=== PATIENT | female | born 1955 | race Caucasian/White ===

== ENCOUNTER → 2019-01-09 | Outpatient (CLI) | payer MEDICARE, OTHER ==
[~2019-01-09] MED LIST: ATOR20; LEVSOD125 PO; METO25ER; NAPR500ERA; PROG100; VICODIN; [UNRECOGNIZED DRUG - CODE]; [UNRECOGNIZED DRUG - OTHER]
[2019-01-09 13:00] LABS: Bilirubin, Urine Neg (Neg); Blood, Urine 3+ (Neg); Glucose Qualitative, Urine Neg (Neg); Ketones, Urine Neg (Neg); Leukocyte Esterase, Urine 1+ (Neg); Nitrite, Urine Neg (Neg); Protein, Urine Neg (Neg); Urobilinogen, Urine NORM (Normal)
[2019-01-09 13:12] LABS: Appearance, Urine Clear (Clear); Color, Urine Yellow (P-Yellow)
[2019-01-09 13:14] LABS: Bacteria Few /hpf; Red Blood Cells, Urine 25-50 /hpf (0-2); Squamous Epithelial Cells Mod /hpf (Few)
== END | disposition home or self-care (01) ==
LOC: LAB SHORT 09:39 → LAB 09:39
PROVIDERS: Nurse Practitioner Family
DX: N39.0 Urinary tract infection, site not specified (principal)
CPT/HCPCS: 81001; 87077; 87086; 87186

== ENCOUNTER → 2019-02-04 | Outpatient (CLI) | payer MEDICARE, OTHER | END | disposition home or self-care (01) | LOC: LAB SHORT 19:07 → LAB EV 19:07 | DX: N39.0 Urinary tract infection, site not specified (principal) | CPT/HCPCS: 87086 ==

== ENCOUNTER 2019-03-18 09:05 | Day surgery (SDC) | payer MEDICARE, OTHER ==
[~2019-03-18] VITALS: Ht 160 cm; Wt 92.3 kg
== END 2019-03-18 11:00 | disposition home or self-care (01) ==
LOC: ORSCSDS 09:05
PROVIDERS: Internal Medicine Gastroenterology
PROC: 0DBH8ZX Excision of Cecum, Via Natural or Artificial Opening Endoscopic, Diagnostic (ICD-10-PCS; principal; 2019-03-18 10:15)
PROC: 0DBM8ZX Excision of Descending Colon, Via Natural or Artificial Opening Endoscopic, Diagnostic (ICD-10-PCS; principal; 2019-03-18 10:15)
DX: Z12.11 Encounter for screening for malignant neoplasm of colon (principal); D12.0 Benign neoplasm of cecum; D12.4 Benign neoplasm of descending colon; K57.30 Diverticulosis of large intestine without perforation or abscess without bleeding; K64.8 Other hemorrhoids; I10 Essential (primary) hypertension; E03.9 Hypothyroidism, unspecified; Z79.899 Other long term (current) drug therapy
CPT/HCPCS: 88305; J2704; J7120

== ENCOUNTER → 2019-03-25 | Outpatient (CLI) | payer MEDICARE, OTHER ==
[2019-03-25 07:44] LABS: Source, Urine Clean Catch
[2019-03-25 12:56] LABS: Bilirubin, Urine Neg (Neg); Blood, Urine Neg (Neg); Glucose Qualitative, Urine Neg (Neg); Ketones, Urine Neg (Neg); Leukocyte Esterase, Urine Neg (Neg); Nitrite, Urine Neg (Neg); Protein, Urine Neg (Neg); Specific Gravity, Urine 1.005 (1.003-1.022); Urobilinogen, Urine NORM (Normal)
[2019-03-25 13:11] LABS: Appearance, Urine Clear (Clear); Color, Urine Yellow (P-Yellow)
== END | disposition home or self-care (01) ==
LOC: LAB 07:42 → LAB SHORT 07:42
PROVIDERS: Registered Nurse
DX: N39.0 Urinary tract infection, site not specified (principal)
CPT/HCPCS: 81003; 87086

== ENCOUNTER → 2019-04-18 | Outpatient (CLI) | payer MEDICARE, OTHER | END | disposition home or self-care (01) | LOC: LAB SHORT 14:00 → LAB 14:00 | DX: R30.0 Dysuria (principal) | CPT/HCPCS: 87086 ==

== ENCOUNTER → 2019-05-22 | Outpatient (CLI) | payer MEDICARE, OTHER ==
[2019-05-22 13:28] LABS: Bilirubin, Urine Neg (Neg); Blood, Urine Neg (Neg); Glucose Qualitative, Urine Neg (Neg); Ketones, Urine Neg (Neg); Leukocyte Esterase, Urine Neg (Neg); Nitrite, Urine Neg (Neg); Protein, Urine Neg (Neg); Urobilinogen, Urine NORM (Normal)
[2019-05-22 14:10] LABS: Appearance, Urine Clear (Clear); Color, Urine Pale Yellow (P-Yellow)
== END | disposition home or self-care (01) ==
LOC: LAB 13:19 → LAB SHORT 13:19
PROVIDERS: Nurse Practitioner Obstetrics & Gynecology
DX: R82.998 Other abnormal findings in urine (principal)
CPT/HCPCS: 81003

== ENCOUNTER → 2019-07-07 | Outpatient (CLI) | payer MEDICARE, OTHER | END | disposition home or self-care (01) | LOC: LAB 09:49 → LAB SHORT 09:49 | DX: N76.0 Acute vaginitis (principal) | CPT/HCPCS: 87070; 87077; 87186; 87205 ==

== ENCOUNTER → 2020-02-02 | Outpatient (CLI) | payer MEDICARE, OTHER ==
[2020-02-02 14:11] LABS: Bilirubin, Urine Neg (Neg); Blood, Urine Neg (Neg); Glucose Qualitative, Urine Neg (Neg); Ketones, Urine 1+ (Neg); Leukocyte Esterase, Urine Neg (Neg); Nitrite, Urine Neg (Neg); Protein, Urine Neg (Neg); Specific Gravity, Urine 1.025 (1.003-1.022); Urobilinogen, Urine NORM (Normal)
[2020-02-02 14:28] LABS: Appearance, Urine Clear (Clear); Color, Urine Yellow (P-Yellow)
== END | disposition home or self-care (01) ==
LOC: LAB 09:00 → LAB SHORT 09:00 → LAB FUT 01-31 15:15
PROVIDERS: Nurse Practitioner Family
DX: R30.9 Painful micturition, unspecified (principal)
CPT/HCPCS: 81003

== ENCOUNTER → 2022-01-04 | Outpatient (CLI) | payer MEDICARE, OTHER | END | disposition home or self-care (01) | LOC: LAB SHORT 13:30 | DX: R30.9 Painful micturition, unspecified (principal) | CPT/HCPCS: 87086 ==

== ENCOUNTER → 2022-01-31 | Outpatient (CLI) | payer MEDICARE, OTHER | END | disposition home or self-care (01) | LOC: LAB SHORT 18:01 | DX: R30.9 Painful micturition, unspecified (principal) | CPT/HCPCS: 87086 ==

== ENCOUNTER 2022-05-07 09:12 | Day surgery (SDC) | payer MEDICARE, OTHER ==
[~2022-05-07] VITALS: Ht 154.9 cm; Wt 85.5 kg
== END 2022-05-07 11:38 | disposition home or self-care (01) ==
LOC: ORSCSDS 09:12
PROVIDERS: Internal Medicine Gastroenterology
PROC: 0DJD8ZZ Inspection of Lower Intestinal Tract, Via Natural or Artificial Opening Endoscopic (ICD-10-PCS; principal; 2022-05-07 10:30)
DX: Z12.11 Encounter for screening for malignant neoplasm of colon (principal); Z86.010 Personal history of colon polyps; K57.30 Diverticulosis of large intestine without perforation or abscess without bleeding; E66.9 Obesity, unspecified; Z68.33 Body mass index [BMI] 33.0-33.9, adult; Z79.899 Other long term (current) drug therapy
CPT/HCPCS: J2704; J7120

== ENCOUNTER 2022-08-21 11:04 | Inpatient (IN) | payer MEDICARE, OTHER ==
[~2022-08-21] VITALS: Ht 160 cm; Wt 78.1 kg
[2022-08-21] MEDS ORDERED: LEVSOD100 PO (11:21)
[2022-08-21] MEDS ORDERED: MEMANTINE HCL E14 MG PO (11:22)
[2022-08-21 12:11] LABS: BASOPHILS ABSOLUTE AUTO 0.05 K/mm3 (0.00-0.23); BASOPHILS PERCENT AUTO 1 % (0-2); EOSINOPHILS ABSOLUTE AUTO 0.14 K/mm3 (0.00-0.68); EOSINOPHILS PERCENT AUTO 2 % (0-6); Hematocrit 42.4 % (33.0-51.0); Hemoglobin 14.7 g/dL (11.5-16.0); IMMATURE GRAN ABSOLUTE AUTO 0.02 K/mm3 (0.00-0.10); IMMATURE GRAN PERCENT AUTO 0 % (0-1); LYMPHOCYTES ABSOLUTE AUTO 2.37 K/mm3 (0.84-5.20); LYMPHOCYTES PERCENT AUTO 32 % (21-46); MONOCYTES ABSOLUTE AUTO 0.51 K/mm3 (0.16-1.47); MONOCYTES PERCENT AUTO 7 % (4-13); Mean Corpuscular HGB 29.6 pg (26.0-34.0); Mean Corpuscular HGB Conc 34.7 g/dL (31.5-36.5); Mean Corpuscular Volume 85 fL (80-100); NEUTROPHILS ABSOLUTE AUTO 4.42 K/mm3 (1.96-9.15); NEUTROPHILS PERCENT AUTO 59 % (41-73); Platelet Count 240 K/mm3 (150-400); RDW Coefficient Variation 13.4 % (11.7-14.2); Red Blood Cell Count 4.97 M/mm3 (3.80-5.20); White Blood Cell Count 7.51 K/mm3 (4.00-11.30)
[2022-08-21 12:20] LABS: Anion Gap 3 mmol/L (6-16); Blood Urea Nitrogen 11 mg/dL (8-24); Bun/Creatinine Ratio 23.1 (12.0-20.0); CO2, Blood 27 mmol/L (21-32); Calcium, Blood 9.1 mg/dL (8.5-10.1); Chloride, Blood 111 mmol/L (98-108); Creatinine, Blood 0.48 mg/dL (0.40-1.00); Ethanol (Alcohol), Blood, Med <3 mg/dL; Glomerular Filtration Rate 102 (60-); Glucose, Blood 109 mg/dL (70-99); Potassium, Blood 3.8 mmol/L (3.5-5.5); Sodium, Blood 141 mmol/L (136-145)
[2022-08-21 12:51] LABS: Source, Urine Clean Catch
[2022-08-21 12:56] LABS: Appearance, Urine Clear (Clear); Bilirubin, Urine Neg (Neg); Blood, Urine 1+ (Neg); Color, Urine Yellow (P-Yellow); Glucose Qualitative, Urine Neg (Neg); Ketones, Urine Neg (Neg); Leukocyte Esterase, Urine 2+ (Neg); Nitrite, Urine Neg (Neg); Protein, Urine Neg (Neg); Urobilinogen, Urine NORM (Normal)
[2022-08-21 13:07] LABS: Bacteria Mod /hpf; Squamous Epithelial Cells Not Seen /hpf (Few)
[2022-08-21] MEDS ORDERED: DONEPEZIL HCL10 MG PO (17:38)
--- NOTE | 2022-08-21 21:53 | NUR ---
ADMIT NOTE 67 YR OLD FEMALE ADMITTED TO FLOOR FROM THE ED WITH DX ATROKE AND LEFT WEAKNESS. ORIENTED X 4. ORIENTED TO CALL LIGHT. CALL LIGHT IN REACH. RAILS UP X 3. AGREES TO USE CALL LIGHT
--- NOTE | 2022-08-22 00:11 | NUR ---
NEURO CHECK: LEFT MOUTH DROOP CONTINUES. 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 PUPILS ROUND, 2CM EACH. DO NOT RESPOND TO LIGHT. LEG ASSESSMENTS UNCHANGED FROM EARLIER. REMAINS ALERT AND OREINTED X 4. CALL LIGHT IN REACH
--- NOTE | 2022-08-22 03:06 | NUR ---
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 ALERT AND ORIENTED. VSS. NEURO CHECKS Q 4 HRS. 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 HAS BEEN RESTING QUIETLY WITH NO NOTED S/S ACUTE DISTRESS. REPORTED THAT LEFT LEG HAS HAD DIFFICULTIES WITH CONTROL EVEN BEFORE CURRENT CVA. STATED SHE ALMOST FELL DUE TO ITS CONDITION AND SHE HAD VERTIGO BEFORE SHE CAME TO THE HOSPITAL. CALL LIGHT IN REACH. WILL CONTINUE TO MONITOR/ASSESS.
--- NOTE | 2022-08-22 18:48 | NUR ---
SHIFT SUMMARY PTN WITH ACUTE CVA, A&O X4, AMBULATING WITH FWW. PTN WITH SOME LT-SIDED DEFICIT, MOSTLY IN THE LEG. 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 NO DROOP NOTED IN FACE, THOUGH PTN CAN FEEL SOME WEAKNESS. SEEN BY PT, OT, ST TODAY. ECHOCARDIOGRAM DONE TODAY. PHYSICIAN AWAITING RESULTS. POSSIBLE SNF FOR THERAPY VS HOME WITH OUTPATIENT THERAPY. PRESENT IN ROOM THROUGHOUT DAY, GOOD ADVOCATE. ST INSTRUCT HOLD MEAL FOR LETHARGY OR RESPIRATORY DISTRESS, BUT REGULAR DIET TOLERATED THIS SHIFT. STAY AT 90 DEGREE WITH PO INTAKE. ORAL CARE 3X A DAY. PTN 1-PERSON ASSIST. CONTINUE TO MONITOR.
--- NOTE | 2022-08-23 04:40 | NUR ---
SHIFT UNREMARKABLE. PATIENT TOOK 2100 MEDICATIONS WITHOUT DIFFICULTY AND OTHERWISE SLEPT THROUGH THE NIGHT. PATIENT IS ABLE TO SPEAK CLEARLY AND ENUNCIATE PROPERLY WITH CLEAR IMPROVEMENT NOTED FROM WHERE SHE REPORTS SHE WAS LAST NIGHT. CALL LIGHT LEFT WITHIN REACH.
[2022-08-23 05:59] LABS: BASOPHILS ABSOLUTE AUTO 0.06 K/mm3 (0.00-0.23); BASOPHILS PERCENT AUTO 1 % (0-2); EOSINOPHILS ABSOLUTE AUTO 0.18 K/mm3 (0.00-0.68); EOSINOPHILS PERCENT AUTO 3 % (0-6); Hematocrit 43.3 % (33.0-51.0); Hemoglobin 14.6 g/dL (11.5-16.0); IMMATURE GRAN ABSOLUTE AUTO 0.01 K/mm3 (0.00-0.10); IMMATURE GRAN PERCENT AUTO 0 % (0-1); LYMPHOCYTES ABSOLUTE AUTO 2.86 K/mm3 (0.84-5.20); LYMPHOCYTES PERCENT AUTO 40 % (21-46); MONOCYTES ABSOLUTE AUTO 0.52 K/mm3 (0.16-1.47); MONOCYTES PERCENT AUTO 7 % (4-13); Mean Corpuscular HGB 28.6 pg (26.0-34.0); Mean Corpuscular HGB Conc 33.7 g/dL (31.5-36.5); Mean Corpuscular Volume 85 fL (80-100); Mean Platelet Volume 9.7 fL (9.1-12.4); NEUTROPHILS ABSOLUTE AUTO 3.49 K/mm3 (1.96-9.15); NEUTROPHILS PERCENT AUTO 49 % (41-73); Platelet Count 233 K/mm3 (150-400); RDW Coefficient Variation 13.5 % (11.7-14.2); RDW Standard Deviation 42.1 fL (35.1-46.3); Red Blood Cell Count 5.11 M/mm3 (3.80-5.20); White Blood Cell Count 7.12 K/mm3 (4.00-11.30)
[2022-08-23 06:20] LABS: Bun/Creatinine Ratio 34.4 (12.0-20.0); Calcium, Blood 8.7 mg/dL (8.5-10.1); Creatinine, Blood 0.55 mg/dL (0.40-1.00); Potassium, Blood 3.7 mmol/L (3.5-5.5)
--- NOTE | 2022-08-23 18:17 | NUR ---
SHIFT SUMMARY PTN ARRIVED EARLY THIS AM AND STAYED THE DAY. ECHOCARDIOGRAM WAS COMPLETED YESTERDAY, AND THIS WAS REVIEWED WITH PTN AND FIRST THING THIS AM. PTN WORKED WITH PT AND OT AGAIN THIS SHIFT. THEIR RECOMMENDATION MAY BE TO REFER TO INTENSIVE CARE UNIT FOR REHAB. RECOMMENDATION FOR PTN HERE IS TO SLOW DOWN WHEN USING WALKING WITH WALKER. ALSO, RECOMMENDING TO USE BED ALARM AT NIGHT, PTN FOUND HERSELF UP OUT OF HER BED DURING THE NIGHT. CONTINUE TO FOLLOW.
--- NOTE | 2022-08-24 05:31 | NUR ---
SHIFT SUMMARY A&O X 4. VSS. PT WAS C/O OF TINGLING TO LEFT SIDE OF FACE AND WAS CONCERNED THAT IT MIGHT BE A STROKE. THIS RN DID NEURO CHECKS ON PT. PT DID NOT HAVE FACIAL DROOP WHEN ASKED TO SMILE. BILAT HAND PEDODONTIST STRONG AND PT ABLE TO AMBULATE TO BATHROOM. PT ON TELEMETRY. PT SLEPT OFF AND ON BETWEEN CARE. WILL CONTINUE TO MONITOR.
[2022-08-24] MEDS ORDERED: ASPI81CH PO (13:23)
[2022-08-24] MEDS ORDERED: ATOR40TA PO (13:24)
[2022-08-24] MEDS ORDERED: CLOP75 PO (13:24)
[2022-08-24] MEDS ORDERED: SULTRIDS PO (13:25)
[2022-08-24] MEDS ORDERED: ASPI325 PO (13:25)
--- NOTE | 2022-08-24 14:13 | NUR ---
DISCHARGE NOTE: PATIENT AND PATIENTS WERE EDUCATED ON DISCHARGE INSTRUCTIONS. BOTH VERBALIZED UNDERSTANDING OF INSTRUCTIONS AND HAD NO FURTHER QUESTIONS AT THIS TIME. PERSCRIPTIONS WERE FAXED TO HER PREFERRED PHARMACY WHICH IS [facility]. IV WAS TAKEN OUT AND WNL. SHE IS TOLERATING PO INTAKE AND IS VOIDING/PASSING GAS. SHE REPORTS HAVING LEFT LEG WEAKNESS BUT REPORTS FEELING "STABLE" WITH HER FWW WITH AMBULATION. SHE HAS BEEN INDEP. IN THE ROOM AND CALLS APPROPRIATELY. PATIENT IS DRESSED AND HAS PERSONAL ITEMS IN THE ROOM GATHERED. SHE IS BEING WHEELCHAIRED DOWN TO HER HUSBANDS CAR TO BE TAKEN HOME. HER HAS THE PATIENTS PERSONAL WHEELCHAIR IN THE CAR ALREADY. PATIENT HAS HER PRINTED NOTES FROM PHYSICAL AND OCCUPATIONAL THERAPY WITH HER DISCHARGE INSTRUCTIONS. PATIENT WILL NEED AN OUTPATIENT PHYSICAL THERAPY REFERRAL AT HER NEXT PCP APPOINTMENT WHICH THE PATIENT AND ARE AWARE OF.
== END 2022-08-24 15:57 | disposition home or self-care (01) | DRG 65 ==
LOC: ER 11:04 → MEDS 11:05
PROVIDERS: Student in an Organized Health Care Education/Training Program; ADMIT Internal Medicine
DX: I63.81 Other cerebral infarction due to occlusion or stenosis of small artery (principal); G81.94 Hemiplegia, unspecified affecting left nondominant side; N39.0 Urinary tract infection, site not specified; F03.90 Unspecified dementia, unspecified severity, without behavioral disturbance, psychotic disturbance, mood disturbance, and anxiety; E03.9 Hypothyroidism, unspecified; I10 Essential (primary) hypertension; E78.00 Pure hypercholesterolemia, unspecified; R29.810 Facial weakness; R29.703 NIHSS score 3; B96.20 Unspecified Escherichia coli [E. coli] as the cause of diseases classified elsewhere; Z79.899 Other long term (current) drug therapy; Z90.710 Acquired absence of both cervix and uterus; Z98.890 Other specified postprocedural states
CPT/HCPCS: 36415; 70450; 70496; 70498; 70551; 80048; 81001; 82947; 85025; 87077; 87086; 87186; 92610; 93005; 93010; 93306; 97110; 97112; 97116; 97129; 97130; 97162; 97166; 97530; 97535; A9270; G0378; G0480; J0696; Q9967

== ENCOUNTER → 2023-09-17 | Outpatient (CLI) | payer MEDICARE, OTHER ==
[~2023-09-17] MED LIST changes: +ASPI325 PO; +ASPI81CH PO; +ATOR40TA PO; +CLOP75 PO; +DONEPEZIL HCL10 MG PO; +LEVSOD100 PO; +MEMANTINE HCL E14 MG PO; +SULTRIDS PO
== END | disposition home or self-care (01) ==
LOC: LAB 10:23 → LAB SHORT 10:23
DX: N39.0 Urinary tract infection, site not specified (principal)
CPT/HCPCS: 87077; 87086; 87186

== ENCOUNTER → 2024-08-17 | Outpatient (CLI) | payer MEDICARE, OTHER ==
[~2024-08-17] MED LIST changes: +ALBU8HFA2 INH; +ATOR20 PO; +BISA5EC PO; +DOCU100 PO; +ESTRADIOL42.5 GM VAG; +HYDR1TAB94 PO; +IBUP600 PO; +TRAZ50 PO; +VALA500 PO
[2024-08-18 11:04] LABS: Bilirubin, Urine Neg (Neg); Blood, Urine Neg (Neg); Glucose Qualitative, Urine Neg (Neg); Ketones, Urine Neg (Neg); Leukocyte Esterase, Urine Neg (Neg); Nitrite, Urine Neg (Neg); Protein, Urine Neg (Neg); Urobilinogen, Urine NORM (Normal)
[2024-08-18 11:05] LABS: Appearance, Urine Clear (Clear); Color, Urine Pale Yellow (P-Yellow)
== END ==
LOC: LAB SHORT 19:45 → LAB 19:45 → LAB FUT 08-12 16:55
PROVIDERS: Obstetrics & Gynecology
DX: Z01.818 Encounter for other preprocedural examination (principal)
CPT/HCPCS: 81003

== ENCOUNTER 2024-08-19 07:54 | Day surgery (SDC) | payer MEDICARE, OTHER ==
[~2024-08-19] VITALS: Ht 154.9 cm; Wt 80.0 kg
[2024-08-19] VITALS (14 sets, daily range): BP systolic 109–157; BP diastolic 51–86
[2024-08-19] MEDS ORDERED: CeFAZolin Sodium 2,000 MG in NS 100 ML IV SCH (08:35)
[2024-08-19] MEDS ORDERED: Lactated Ringer's 1,000 ML IV SCH ×2 (08:35→10:50)
[2024-08-19] MEDS ORDERED: CeFAZolin Sodium 2,000 MG VIAL ONE (08:59)
[2024-08-19] MEDS ORDERED: Bupivacaine 0.5% HCl 5 MG/ML 30MLVIAL ONE (09:01)
--- NOTE | 2024-08-19 09:03 | NUR ---
History, Chart, Medications and Allergies reviewed before start of procedure. Pre-Op teaching done. Pt verbalizes understanding. PT'S AT STATED PT DID HAVE APPROX 2OZ OF SPRITE SODA AT 0600. ALL PT BELONGINGS PLACED UNDER BED.
[2024-08-19] MEDS ORDERED: FentaNYL Citrate 50 MCG/ML 2 ML Injection ONE ×2 (09:19→10:57)
[2024-08-19] MEDS ORDERED: Midazolam HCl 1MG / ML 2ML Vial ONE (09:20)
[2024-08-19] MEDS ORDERED: Ondansetron HCl 2 MG / ML 2ML Vial ONE (09:21)
[2024-08-19] MEDS ORDERED: Rocuronium Bromide 10 MG/ML 5ML Injection IV ONE (09:21)
[2024-08-19] MEDS ORDERED: propofoL 20 ML IV ONE (09:21)
[2024-08-19] MEDS ORDERED: Dexamethasone Sod Phos 10 MG/ML 1ML VIAL ONE (09:21)
[2024-08-19] MEDS ORDERED: EpiNEPhrine 1 MG/1 ML 1ML Vial ONE (09:25)
[2024-08-19] MEDS ORDERED: ePHEDrine Sulfate 50 MG/ML 1ML Injection ONE (10:27)
[2024-08-19] MEDS ORDERED: Sugammadex Sodium 200 MG/2ML SDV (100 MG/ML) ONE (10:39)
[2024-08-19] MEDS ORDERED: Ketorolac Tromethamine 30mg Vial ONE (10:40)
[2024-08-19] MEDS ORDERED: Metoclopramide HCl 5MG / ML 2ML Vial IV PRN (10:50)
[2024-08-19] MEDS ORDERED: Simethicone 80 MG Chew PO PRN (10:50)
[2024-08-19] MEDS ORDERED: Ondansetron HCl 2 MG / ML 2ML Vial IV PRN (10:50)
[2024-08-19] MEDS ORDERED: OxyCODONE HCL 5 MG TAB PO PRN (10:50)
[2024-08-19] MEDS ORDERED: Polyethylene Glycol 3350 17 gm PO PRN (10:50)
[2024-08-19] MEDS ORDERED: Naloxone HCl 0.4MG / ML 1ML Vial IV PRN (10:50)
[2024-08-19] MEDS ORDERED: Acetaminophen 325 MG TABLET PO PRN (10:55)
[2024-08-19] MEDS ORDERED: FLU VACC TS2024-25(6MOS UP)/PF 45 MCG/0.5 ML SYRINGE IM SCH (10:55)
[2024-08-19] MEDS ORDERED: DiphenhydrAMINE HCL 25 MG Cap PO PRN (10:55)
[2024-08-19] MEDS ORDERED: HYDROmorphone HCl/Pf 1MG SYR IV PRN (10:55)
[2024-08-19] MEDS ORDERED: Ketorolac Tromethamine 15mg Vial IV PRN (11:00)
[2024-08-19] MEDS ORDERED: Albuterol HFA200 ACT/6.7 GM INH INH PRN (11:15)
--- NOTE | 2024-08-19 17:19 | NUR ---
POST OP: REPORT RECEIVED FROM TITLE CLERK, PT TO UNIT AT 1150. VSS. SCANT VAGINAL BLEED. PT DENIES PAIN, N/V. ABLE TO DRINK AND EAT CRACKERS. PT IS ALERT, ORIENTED X2. NEEDS REMINDED THAT SHE HAD SURGERY AND HAS SMALL EXPECTED BLEEDING. BED ALARM SET FOR SAFETY, AT BEDSIDE. PT INSTRUCTED TO USE CALL LIGHT IF NEED OOB
--- NOTE | 2024-08-19 18:40 | NUR ---
DISCHARGE: PACKET PRINTED AND PT EDUCATED. IV DC'D BY CHERI BROWN. PT LEFT UNIT VIA WHEELCHAIR WITH AT ABOUT 1800
[2024-08-19] MEDS ORDERED: Atorvastatin 10 MG Tab PO SCH (21:00)
[2024-08-19] MEDS ORDERED: Donepezil HCl 5 MG Tab PO SCH (21:00)
[2024-08-19] MEDS ORDERED: Memantine HCL 5 MG Tab PO SCH (21:00)
[2024-08-19] MEDS ORDERED: TraZODone HCl 50 MG Tab PO SCH (21:00)
[2024-08-20] MEDS ORDERED: Levothyroxine Sodium 0.1 MG Tab PO SCH (06:00)
[2024-08-20] MEDS ORDERED: Docusate Sodium 100 MG UDC PO SCH (09:00)
== END 2024-08-19 18:00 | disposition home or self-care (01) ==
LOC: ORSCMMR 07:54 → ORD 09:00 → SURS 11:48 → ORSCMMR 18:00
PROVIDERS: Obstetrics & Gynecology
PROC: 0JQC0ZZ Repair Pelvic Region Subcutaneous Tissue and Fascia, Open Approach (ICD-10-PCS; principal; 2024-08-19 09:00)
DX: N81.9 Female genital prolapse, unspecified (principal); I10 Essential (primary) hypertension; E03.9 Hypothyroidism, unspecified; Z79.899 Other long term (current) drug therapy; F03.90 Unspecified dementia, unspecified severity, without behavioral disturbance, psychotic disturbance, mood disturbance, and anxiety
CPT/HCPCS: J0171; J0690; J1100; J1885; J2250; J2405; J2704; J3010; J7120

== ENCOUNTER 2024-09-23 06:37 | Day surgery (SDC) | payer MEDICARE, OTHER ==
[~2024-09-23] VITALS: Ht 157.5 cm; Wt 81.8 kg
[2024-09-23] MEDS ORDERED: OMEP20ER (07:33)
[2024-09-23] MEDS ORDERED: Lactated Ringer's 1,000 ML IV ONE ×2 (07:33→08:09)
[2024-09-23] MEDS ORDERED: propofoL 50 ML IV ONE (07:33)
[2024-09-23] MEDS ORDERED: Celexa10 MG (07:34)
[2024-09-23 08:56] VITALS: BP 129/68
== END 2024-09-23 08:58 | disposition home or self-care (01) ==
LOC: ORSCSDS 06:37
PROVIDERS: Internal Medicine Gastroenterology
PROC: 0DB68ZX Excision of Stomach, Via Natural or Artificial Opening Endoscopic, Diagnostic (ICD-10-PCS; principal; 2024-09-23 08:00)
DX: R13.10 Dysphagia, unspecified (principal); R11.10 Vomiting, unspecified; K31.7 Polyp of stomach and duodenum; G30.9 Alzheimer's disease, unspecified; R63.4 Abnormal weight loss; K59.00 Constipation, unspecified; I63.9 Cerebral infarction, unspecified; Z79.82 Long term (current) use of aspirin; Z79.899 Other long term (current) drug therapy
CPT/HCPCS: 88305; J2704; J7120